=== PATIENT | female | born 1975 | race Asian ===

== ENCOUNTER → 2021-10-06 03:47 | Outpatient (CLI) | payer OTHER, SELFPAY ==
[2021-10-06 22:11] LABS: SARS-CoV-2 RNA PCR Positive
== END ==
PROVIDERS: Internal Medicine Endocrinology, Diabetes & Metabolism; PCP Emergency Medicine; Visit Provider Emergency Medicine
DX: U07.1 COVID-19 (principal)
CPT/HCPCS: C9803; U0003; U0005

== ENCOUNTER 2023-02-04 01:16 | Day surgery (SDC) | payer OTHER, SELFPAY ==
[2023-01-24 15:32] VITALS: BMI 25.8
[2023-02-04 11:17] VITALS: BP 138/92; PULSE 74; RESP 16; TEMP 36.1; O2SAT 100; BMI 25.1
--- NOTE | 2023-02-04 11:32 | P.PNAN_ITS ---
Anes - Initial Pre Proc Eval Procedure: Operation Date: 02/04/23 12:30 Proposed Procedures p Screening Colonoscopy - Josué Russell MD Date/Time: 02/04/23 11:32 Surgeon: Josué Russell MD Pre Op Diagnosis: neoplasm screening Patient Data Age: 47 Gender: F Height: 1.55 m Weight: 60.4 kg Last Vital Signs Temp 97.0 F L 02/04/23 11:17 Pulse 74 02/04/23 11:17 Resp 16 02/04/23 11:17 BP 138/92 H 02/04/23 11:17 Pulse Ox 100 02/04/23 11:17 O2 Del Method Room Air 02/04/23 11:17 Allergies Allergy/AdvReac Type Severity Reaction Status Date / Time No Known Allergies Allergy Unknown Verified 02/04/23 11:15 Home Medications Medication Instructions Recorded Confirmed Type amlodipine 5 mg tablet 5 mg PO DAILY 10/20/19 02/04/23 History atorvastatin 40 mg tablet 40 mg PO DAILY 10/20/19 02/04/23 History glimepiride 4 mg tablet 4 mg PO DAILY 10/20/19 02/04/23 History losartan 100 mg tablet 100 mg PO DAILY 10/20/19 02/04/23 History metformin 1,000 mg tablet 1,000 mg PO BID 10/20/19 02/04/23 History sitagliptin phosphate 100 mg 100 mg PO DAILY 10/20/19 02/04/23 History tablet (Januvia) dulaglutide 3 mg/0.5 mL 3 mg subcut WEEKLY 01/24/23 02/04/23 History subcutaneous pen injector (Trulicity) Patient hx anesthesia problems: none Family hx anesthesia problems: none Results Review: All pre-operative results and documents have been reviewed as part of the pre- operative evaluation. [facility] Past Medical History Medical History (Updated 10/21/19 @ 00:00 by Artie Valladares) Diabetes mellitus, type II HTN (hypertension) Hx of one miscarriage Surgical History Surgical History H/O section Social History Social History (Updated 10/20/19 @ 09:30 by ELOISA Henry) Smoking status: Never smoker Substance use: never Substance use type: does not use Living arrangements: with family Spiritual care concerns: No Anes - Eval Final PreProcedure Day of Procedure 02/04/23 11:32 Patient weight: normal Heart: regular rate and rhythm Lungs: clear to auscultation Airway: Mallampati scale class II Neurological: alert and oriented Last oral intake: >/= 8 hours ASA classification: II Emergent: no Anesthetic plan: proceed Anesthesia type and monitoring: general GIVS and standard monitoring Results Review: All pre-operative results and documents have been reviewed as part of the pre- operative evaluation. Informed Consent: The patient's anesthetic plan and its attendant risks and benefits were discussed with the patient/family/POA. Questions were solicited and answers provided to the satisfaction of the patient/family/POA.
[2023-02-04] MEDS: LACTATED RINGERS 1,000 ML 150 ML IV CONT (11:34)
[2023-02-04 11:36] LABS: Glucose Point of Care 84 mg/dl (65-105)
[2023-02-04 12:02] VITALS: BP 103/65; PULSE 80; RESP 19; O2SAT 100
--- NOTE | 2023-02-04 12:02 | PM.HPGS ---
History of Present Illness History of Present Illness Consent: Risks, benefits, and alternatives have been discussed and questions answered. Patient agrees to proceed with procedure. Chief complaint: neoplasm screening Narrative: Julieth Larios is a 47 year old female presents for screening colonoscopy. Patient's current weight appetite and bowel movements are normal. Patient denies abdominal pain. She has had no bleeding. Family history noncontributory. Review of Systems Review of Systems: Review of systems noncontributory. [facility] Past Medical History Medical History (Updated 02/04/23 @ 12:03 by Josué Russell MD) Diabetes mellitus, type II HTN (hypertension) Hx of one miscarriage Surgical History Surgical History H/O section Social History Social History (Updated 10/20/19 @ 09:30 by ELOISA Henry) Smoking status: Never smoker Substance use: never Substance use type: does not use Living arrangements: with family Spiritual care concerns: No Meds Home Medications and Allergies Home Medications Medication Instructions Recorded Confirmed Type amlodipine 5 mg tablet 5 mg PO DAILY 10/20/19 02/04/23 History atorvastatin 40 mg tablet 40 mg PO DAILY 10/20/19 02/04/23 History glimepiride 4 mg tablet 4 mg PO DAILY 10/20/19 02/04/23 History losartan 100 mg tablet 100 mg PO DAILY 10/20/19 02/04/23 History metformin 1,000 mg tablet 1,000 mg PO BID 10/20/19 02/04/23 History sitagliptin phosphate 100 mg 100 mg PO DAILY 10/20/19 02/04/23 History tablet (Januvia) dulaglutide 3 mg/0.5 mL 3 mg subcut WEEKLY 01/24/23 02/04/23 History subcutaneous pen injector (Trulicity) Allergies Allergy/AdvReac Type Severity Reaction Status Date / Time No Known Allergies Allergy Unknown Verified 02/04/23 11:15 Vital Signs Vital Signs - 24 hr 02/04/23 11:17 Temperature 97.0 F L Pulse Rate 74 Respiratory Rate 16 Blood Pressure 138/92 H Pulse Oximetry 100 Oxygen Delivery Room Air Exam Narrative: Physical exam reveals patient to be alert. Vital signs stable. HEENT exam is unremarkable. Patient is anicteric. Lungs are clear to auscultation and percussion. Heart is without murmur or extra sounds. Abdomen bowel sounds present soft nontender with no organomegaly. Digital external rectal exam is normal. Assessment and Plan Assessment and plan (1) Encounter for screening colonoscopy: Code(s): Z12.11 - Encounter for screening for malignant neoplasm of colon Status: Acute Assessment and Plan: Patient presents today for screening colonoscopy. She appears to be at average risk for colon polyps. Further recommendations may be given after endoscopy.
[2023-02-04 12:12] VITALS: BP 107/74; PULSE 81; RESP 20; O2SAT 99
[2023-02-04 12:22] VITALS: BP 122/83; PULSE 66; RESP 17; O2SAT 100
== END 2023-02-04 12:31 | disposition home or self-care (01) ==
PROVIDERS: PCP Emergency Medicine; Visit Provider Internal Medicine Gastroenterology
PROC: 0DJD8ZZ Inspection of Lower Intestinal Tract, Via Natural or Artificial Opening Endoscopic (ICD-10-PCS; CPT 45378; principal; 2023-02-04 12:30)
DX: Z12.11 Encounter for screening for malignant neoplasm of colon (principal); D12.2 Benign neoplasm of ascending colon; K64.8 Other hemorrhoids; I10 Essential (primary) hypertension; E11.9 Type 2 diabetes mellitus without complications; Z79.84 Long term (current) use of oral hypoglycemic drugs; Z79.899 Other long term (current) drug therapy
CPT/HCPCS: 45385; 82948; 88305; J2704; J7120

== ENCOUNTER 2025-01-23 10:18 | Emergency (ER) | payer OTHER, SELFPAY ==
[2025-01-23 10:30] VITALS: BP 133/82; PULSE 101; RESP 16; TEMP 36.7; O2SAT 100
--- NOTE | 2025-01-23 10:42 | ED.URI ---
HPI - URI/Sore Throat General Chief Complaint: Upper Respiratory Infection Stated Complaint: Bodyaches/Chills Time Seen by Provider: 01/23/25 10:42 Source: patient Mode of arrival: ambulatory Limitations: no limitations History of Present Illness HPI Narrative: Patient presents today complaining of body aches and headache x 2 days. Patient currently rates her pain an 8/10. She does state that she has been taking ibuprofen and Tylenol and having some relief. She denies any shortness of breath or difficulty swallowing at this point. Related Data Home Medications ?Medication ?Instructions ?Recorded ?Confirmed ?Last Taken ?Type amlodipine 5 mg tablet 5 mg PO DAILY 10/20/19 01/23/25 Unknown History Allergies Allergy/AdvReac Type Severity Reaction Status Date / Time No Known Allergies Allergy Unknown Verified 01/23/25 10:35 Review of Systems Review of Systems: CONSTITUTIONAL: Denies fever, chills, or sweats. Reports body aches and headache. EYES: Denies visual changes, redness, or discharge. ENT: Denies rhinorrhea, congestion, sore throat, or otalgia. CARDIOVASCULAR: Denies chest pain, palpitations, or edema. RESPIRATORY: Reports cough or dyspnea. GASTROINTESTINAL: Denies abdominal pain, nausea, vomiting, or diarrhea. GENITOURINARY: Denies dysuria or hematuria. SKIN: Denies rash, itching, or wounds. MUSCULOSKELETAL: Denies back pain, joint pain, or myalgia. NEUROLOGIC: Denies headache, numbness, tingling, or weakness. PSYCH: Denies depression or anxiety. All systems reviewed & are unremarkable except as noted in HPI and below PMFSH Past Medical History Medical History Diabetes mellitus, type II HTN (hypertension) Hx of one miscarriage Surgical History Surgical History H/O section Social History Social History Smoking status: Never smoker Substance use: never Substance use type: does not use Living arrangements: with family Spiritual care concerns: No Comments At time of signature, I have reviewed and agree with nursing past medical, surgical, social and family history unless otherwise noted. Please see nursing chart for further information. There is no relevant family history pertinent to the presenting complaint. Exam Narrative: GENERAL: Well-appearing, well-nourished, and in no acute distress. EYES: EOMI. No redness or drainage. Conjunctivae normal. ENT: Mucous membranes pink and moist. Nares clear. No rhinorrhea. TMs normal bilaterally. No Throat Erythema or tonsillar exudate, uvula midline. NECK: Normal AROM. Supple. No lymphadenopathy. CHEST: No respiratory distress. Clear to auscultation. HEART: Regular rate and rhythm. No murmur appreciated. Normal peripheral pulses. ABDOMEN: Soft, nontender, nondistended, normal active bowel sounds. SKIN: Warm, dry, no rash. Capillary refill normal. Normal skin turgor. NEURO: No focal deficits. Alert and oriented x3. Gait steady. PSYCH: Normal affect. No signs of depression or anxiety. Course Course Level of Care: Express Care Visit Vital Signs Vital signs: Vital Signs Temperature 98.1 F 01/23/25 10:30 Pulse Rate 101 H 01/23/25 10:30 Respiratory Rate 16 01/23/25 10:30 Blood Pressure 133/82 01/23/25 10:30 Pulse Oximetry 100 01/23/25 10:30 Temperature 98.1 F 01/23/25 10:30 Pulse Rate 101 H 01/23/25 10:30 Respiratory Rate 16 01/23/25 10:30 Blood Pressure 133/82 01/23/25 10:30 Pulse Oximetry 100 01/23/25 10:30 Reviewed. MDM - URI/Sore Throat MDM Narrative Medical decision making narrative: Discussed physical exam findings. Advised supportive measures and signs/symptoms to go to the ER. Pt is appropriate for outpt treatment and follow up. Differential Diagnosis Differential diagnosis: Likely upper respiratory infection, sinusitis, viral infection, influenza and other (Covid) Critical Care Time Critical Care Time Critical Care Time: No Discharge Plan Discharge Clinical Impression: Upper respiratory infection Qualifiers: URI type: unspecified viral URI Qualified Code(s): J06.9 - Acute upper respiratory infection, unspecified Patient Disposition: Home Condition: Stable Instructions: Upper Respiratory Infection (DC) Additional Instructions: Recommend Flonase spray and Zyrtec (or Claritin/Aliyah) Tylenol 1000mg every 8 hours as needed for pain Symptomatic treatment includes: rest, fluids, and increase humidity of the air at home. Follow up with your primary care provider in 1 week. Go to the ER for worsening symptoms or concerns. Patient Language: Other Prescriptions: No Action amlodipine 5 mg tablet 5 mg PO DAILY Jardiance 25 mg tablet 25 mg PO QAM Qty: 90 3RF losartan 100 mg tablet 100 mg PO DAILY Qty: 90 1RF metformin 1,000 mg tablet 1,000 mg PO BID Qty: 180 3RF rosuvastatin 20 mg tablet 20 mg PO DAILY Qty: 90 3RF Ozempic 2 mg/dose (8 mg/3 mL) pen injector 2 mg subcut WEEKLY Qty: 9 3RF Follow-up/Referrals: PHYSICIAN,AUTOMATION TECHNICIAN [Primary Care Provider] - Time of Disposition: 10:54
[2025-01-23 10:47] LABS: EDCOVIDSCREEN Negative (Negative); EDINFLUASCREEN Negative (Negative); EDINFLUBSCREEN Negative (Negative)
== END 2025-01-23 10:56 | disposition home or self-care (01) ==
DX: J06.9 Acute upper respiratory infection, unspecified (principal); Z20.822 Contact with and (suspected) exposure to COVID-19; E11.9 Type 2 diabetes mellitus without complications; I10 Essential (primary) hypertension
CPT/HCPCS: 87426; 87804; 99212; G0463